=== PATIENT | male | born 1995 | race Caucasian/White ===

== ENCOUNTER 2025-08-10 07:19 | Emergency (ER) | payer BC, SELFPAY ==
[2025-08-10 07:33] VITALS: BP 163/92; PULSE 76; RESP 16; TEMP 36.4; O2SAT 97; BMI 30.8
[2025-08-10 08:02] LABS: Hematocrit* 45.2 % (37.0-53.0); Hemoglobin* 15.4 gm/dL (13.5-17.5); Immature Granulocytes Abs Auto 0.01 K/uL (0.00-0.30); Immature Granulocytes Pct Auto 0.1 %; Mean Corpuscular HGB Conc 34 gm/dL (32-36); Mean Corpuscular Hemoglobin 29 pg (26-34); Mean Corpuscular Volume 85 fL (80-100); RDW Coefficient of Variation % 12.3 % (11.5-15.5); Red Blood Count* 5.31 m/uL (4.30-5.90); White Blood Count* 7.92 K/uL (4.50-11.00)
[2025-08-10 08:04] LABS: Lymphocytes Absolute Auto 1.30 K/uL (0.90-2.90); Slide Review Reflex No
[2025-08-10 08:16] LABS: Albumin* 5.1 g/dL (3.3-5.0); Chloride* 92 mmol/L (96-114); Sodium* 136 mmol/L (135-149)
[2025-08-10 08:17] LABS: Potassium* 3.8 mmol/L (3.6-5.1)
[2025-08-10 08:19] LABS: Alanine Aminotransferase* 40 U/L (4-50); Anion Gap 16 mEq/L (7-15); Aspartate Amino Transferase* 33 U/L (12-35); Blood Urea Nitrogen* 18 mg/dL (5-24); Carbon Dioxide* 28 mmol/L (20-32); Creatinine* 1.1 mg/dL (0.5-1.5); Est. Creatinine Clearance* 102.31; Estimated Glomerular Filt Rate 93 ml/min
[2025-08-10 08:20] LABS: Alkaline Phosphatase* 89 U/L (40-150); Bilirubin Total* 1.5 mg/dL (0.1-1.5); Calcium* 9.8 mg/dL (8.4-10.6); Glucose* 118 mg/dL (60-115); Total Protein* 9.1 g/dL (6.0-8.3)
[2025-08-10 08:20] LABS: PCR FLU A Negative PCR FLU A (Negative); PCR FLU B Negative PCR FLU B (Negative); PCR RSV Negative PCR RSV (Negative); SARS PCR* Negative SARS-CoV-2 (Negative)
--- NOTE | 2025-08-10 08:33 | ED.GENADULT ---
HPI - General Adult General Date Seen: 08/10/25 Chief complaint: Nausea/Vomiting Stated complaint: nausea Time Seen by Provider: 08/10/25 08:03 Source: patient Mode of arrival: ambulatory Limitations: no limitations History of Present Illness HPI narrative: Patient is a 30-year-old male presenting to the emergency department for fatigue, intermittent chills, intermittent headache, left shoulder pain. He states for the past 3 or 4 days he has been having nausea, headaches, fatigue. States he is not currently nauseated. States he actually feels hungry at this time. Has not had any vomiting. No previous abdominal surgeries. Denies any abdominal pain. States the headache is in the back of his head near the occipital region. He started developing left-sided neck and left shoulder pain last night. Due to that his significant other convinced him to come to the emergency department for possible heart attack. He has no family history of heart disease. He has no medical conditions and does not take any medications. Denies any chest pain other than when he takes a deep breath. Denies shortness of breath but just states he gets fatigued. Is not aware of any sick contacts. Does not have a cough or rhinorrhea. The states he feels mildly dehydrated. Denies history of blood clots, lower extremity swelling, hemoptysis, any history of cancer, recent surgeries, hormone use. No other concerns noted at this time. Related Data Home Medications ?Medication ?Instructions ?Recorded ?Confirmed No Known Home Medications 08/10/25 08/10/25 Allergies Allergy/AdvReac Type Severity Reaction Status Date / Time No Known Drug Allergies Allergy Verified 08/10/25 07:36 Review of Systems Status of ROS: Reports: 10 or more systems reviewed and unremarkable except as noted in History and below [facility] Social History Smoking Status: Current some day smoker How often do you have a drink containing alcohol: never How often do you have six or more drinks on one occasion: Never AUDIT-C Alcohol total score: 0 Non-prescribed substance use: marijuana (any form) Exam Narrative: Exam Narrative: Const: Well-nourished, Well-developed, in mild distress Eyes: PERRL, no conjunctival injection, and symmetrical lids HENT: Atraumatic external nose and ears. Moist mucous membranes. Neck: Symmetric, trachea midline, No thyromegaly. CVS: RRR, No murmurs or gallops. Peripheral pulses 2+ and equal in all extremities RESP: Unlabored respiratory effort. Clear to auscultation bilaterally. GI: Nontender/Nondistended, No rebound or guarding. MSK:Extremities w/o deformity, Normal Active ROM Skin: Warm, Dry. No rashes or lesions. Neuro: Normal Muscle tone, No focal neurological deficits. Psych: Awake, Alert, & Oriented x3. Appropriate mood and affect. Const: Vital Signs, click to edit/add: Vital Signs - 24 hr 08/10/25 07:33 08/10/25 08:44 Temperature 97.5 F L Pulse Rate [Pulse Oximeter] 76 68 Respiratory Rate 16 16 Blood Pressure [Ri t Upper Arm] 163/92 H 149/76 H Pulse Oximetry 97 98 Oxygen Delivery Me thod Room Air Room Air Course Vital Signs Vital signs: Initial Vital Signs Temperature 97.5 F L 08/10/25 07:33 Temperature Source Oral 08/10/25 07:33 Pulse Rate 76 08/10/25 07:33 Respiratory Rate 16 08/10/25 07:33 Blood Pressure 163/92 H 08/10/25 07:33 Blood Pressure Mean 115 H 08/10/25 07:33 Blood Pressure Position Sitting 08/10/25 07:33 Pulse Oximetry 97 08/10/25 07:33 Oxygen Delivery Method Room Air 08/10/25 07:33 Vital Signs Temperature 97.5 F L 08/10/25 07:33 Pulse Rate 76 08/10/25 07:33 Respiratory Rate 16 08/10/25 07:33 Blood Pressure 163/92 H 08/10/25 07:33 Pulse Oximetry 97 08/10/25 07:33 Oxygen Delivery Method Room Air 08/10/25 07:33 Temperature 97.5 F L 08/10/25 07:33 Pulse Rate 68 08/10/25 08:44 Respiratory Rate 16 08/10/25 08:44 Blood Pressure 149/76 H 08/10/25 08:44 Pulse Oximetry 98 08/10/25 08:44 Oxygen Delivery Method Room Air 08/10/25 08:44 Medications Administered Medications: Discontinued Medications Generic Name Dose Route Start Last Admin Trade Name Freq PRN Reason Stop Dose Admin Sodium Chloride 1,000 mls @ 1,000 mls/hr 08/10/25 08:15 08/10/25 08:48 0.9 % Sodium Chloride 1000 Ml IV 08/10/25 09:14 Infused .Q1H TIANNA Infusion Medical Decision Making MDM Narrative Medical decision making narrative: Patient is a 30-year-old male presenting for left shoulder and neck pain. He is concerned about heart issues. He does have some mild chest pain with deep breaths. The differential diagnosis of chest pain is broad and includes common etiologies such as musculoskeletal strain, GERD, pneumonia, etc. More serious etiologies considered include PE, coronary artery disease, pneumothorax, aortic dissection, aortic aneurysm. Will do EKG troponin to look for signs of cardiac abnormalities. He is PERC negative. His vital signs are stable I have low concern for aortic dissection or aortic aneurysm. Will order chest x-ray look for signs pneumonia pneumothorax. With the nausea I will also order my pacemaker is not pancreatitis. Fluids given for his nausea. CBC, CMP, viral swabs also ordered. Lab work returned showing no acute concerning abnormalities. Troponin within normal limits. Considering like the symptoms are not believe repeat troponin is necessary. EKG interpreted by myself shows no acute concerning abnormalities. Chest x-ray interpreted by myself and radiologist shows concerning signs for left lower lobe pneumonia. I will treat him for pneumonia. Will discharge him home on azithromycin via instymeds. Lab Data Labs: Lab Results 08/10/25 08/10/25 Range/Units 07:38 08:00 WBC 7.92 (4.50-11.00) K/uL RBC 5.31 (4.30-5.90) m/uL Hgb 15.4 (13.5-17.5) gm/dL Hct 45.2 (37.0-53.0) % MCV 85 (80-100) fL MCH 29 (26-34) pg MCHC 34 (32-36) gm/dL RDW Coeff of Adin 12.3 (11.5-15.5) % Plt Count 219 (140-440) K/uL Neut % (Auto) 66.5 (42.0-72.0) % Lymph % (Auto) 16.8 L (20-44) % [place] % (Auto) 15.4 H (0.0-11.0) % Eos % (Auto) 0.8 (0.0-7.0) % Baso % (Auto) 0.4 (0.0-3.0) % Neut # (Auto) 5.27 (1.7-7.0) K/uL Lymph # (Auto) 1.30 (0.90-2.90) K/uL [place] # (Auto) 1.20 H (0.00-0.90) K/UL Eos # (Auto) 0.06 (0.00-0.50) K/uL Baso # (Auto) 0.03 (0.00-0.30) K/uL Abs Immat Gran (auto) 0.01 (0.00-0.30) K/uL Imm/Tot Granulo (auto) 0.1 % Sodium 136 (135-149) mmol/L Potassium 3.8 (3.6-5.1) mmol/L Chloride 92 L (96-114) mmol/L Carbon Dioxide 28 (20-32) mmol/L Anion Gap 16 H (7-15) mEq/L BUN 18 (5-24) mg/dL Creatinine 1.1 (0.5-1.5) mg/dL Estimated Creat Clear 102.31 Estimated GFR 93 ml/min Glucose 118 H (60-115) mg/dL Calcium 9.8 (8.4-10.6) mg/dL Total Bilirubin 1.5 (0.1-1.5) mg/dL AST 33 (12-35) U/L ALT 40 (4-50) U/L Alkaline Phosphatase 89 (40-150) U/L Troponin I 0.02 (0.01-0.04) ng/mL Total Protein 9.1 H (6.0-8.3) g/dL Albumin 5.1 H (3.3-5.0) g/dL Lipase 105 (23-300) U/L SARS-CoV-2 (PCR) Negative SARS-CoV-2 (Negative) Influenza Type A (PCR) Negative PCR FLU A (Negative) Influenza Type B (PCR) Negative PCR FLU B (Negative) RSV (PCR) Negative PCR RSV (Negative) Imaging Data Chest x-ray: Attestation: I have reviewed the pertinent imaging results. Radiologist's impression: Small left lower lobe consolidation is probably pneumonia with the given clinical symptoms. Dictated by Nadiya El MD @ 08/10/2025 9:33:18 AM ECG Data Attestation: I personally reviewed and interpreted this ECG as follows: Prior ECG tracings: not available for review Interpretation: Normal sinus rhythm with rate of 60 beats per minute, normal intervals, normal axis, no ST or T-wave abnormalities. Discharge Plan Discharge Clinical Impression: Left lower lobe pneumonia Qualifiers: Pneumonia type: due to unspecified organism Qualified Code(s): J18.9 - Pneumonia, unspecified organism Patient Disposition: Home, Self-Care Condition: Stable Instructions: Community Acquired Pneumonia (DC) Additional Instructions: You have a small area of pneumonia in your lung. This is likely causing her symptoms. Take antibiotics as prescribed. You picker tender helper the with azithromycin via instymeds. Follow up with the primary care provider. Return for new or worsening symptoms. Prescriptions: No Action No Known Home Medications Follow Up/Referrals: Provider,Not a Local [Primary Care Provider, Family Practice] Stand Alone Forms: Propable Info Instructions
[2025-08-10 08:44] VITALS: BP 149/76; PULSE 68; RESP 16; O2SAT 98
--- OUTSIDE RECORDS SUMMARY | 2025-08-10 08:48 | XMS_ITS | Clinical Summary ---
Author Organization [facility] Address [address] [place] [id number] Care Team Providers Care Exploitation Analyst Name Role Phone Pcp, No Primary Care Provider Unavailabl e Allergies No known active allergies Medications No known medications Active Problems Problem Noted Date Diagnosed Date ADHD (attention deficit hyperactivity disorder) 12/16/2009 Encounters Date Type Department Care Team Description 08/10/2025 8:50 AM [facility] Emergency [facility] [address] [place] [id number] from Last 3 Months Immunizations Immunization Administration Dates Next Due DTP 01/29/1997,1996 DTaP 05/03/2001,12/09/2000,10/17/1997 HIB PRP-OMP (PedvaxHIB) 10/17/1997,01/29/1997,,1996 Hepatitis B (Peds) 04/23/2008,01/29/1997, 997 Inactivated Polio Vaccine 05/03/2001,12/09/2000 MMR 12/09/2000,10/17/1997 Meningococcal Vaccine (Menactra) 04/23/2008 Oral Polio Vaccine 10/17/1997,1996 Tdap 04/23/2008 Varicella Vaccine 12/09/2000 Family History Medical History Relation Name Comments Good Health Brother Good Health Father Good Health Mother Relation Name Status Comments Brother Father Mother Social History Tobacco Use Types Packs/Day Years Used Date Smoking Tobacco: Passive Smo ke Exposure - Never Smoker Smokeless Tobacco: Current Chew Tobacco Cessation:Ready to Q uit: No; Counseling Given: Yes Comments:little more than half a can per day Alcohol Use Standard Drinks/Week Comments Not Currently 0 (1 standard drink = 0.6 oz pur e alcohol) PHQ-2 Answer Date Recorded PHQ-2 Score 0 10/15/2019 Social Connections Answer Date Recorded Do you often feel lonely or isolated from those around you? 0 10/12/2024 Financial Resource Strain Answer Date R ecorded Difficulty of Paying Living Expenses 3 10/12/2024 Difficulty of Paying Living Expenses Not on file 10/12/2024 Food Insecurity Answer Date Recorded Do you worry your food will run out before you are able to buy more? 1 10/12/2024 Transportation Needs Answer Date Record ed Does lack of transportation keep you from medica l appointments? 1 10/12/2024 Does lack of transportation keep you from work, meetings or getting things that you need? 1 10/12/2024 Housing Stability Answer Date Recorded What is your housing situation today? 1 10/12/2024 Utilities Answer Date Recorded Do you have trouble paying f or utilities (for example, heat, electricity, water, phone)? 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 Gender Identity Not on file Sexual Orientation Not on file Last Filed Vital Signs Vital Sign Reading Time Taken Comments Blood Pressure 138/91 10/12/2024 9:03 AM METALLOGRAPHIC TECHNICIAN Pulse 67 10/12/2024 9:03 AM METALLOGRAPHIC TECHNICIAN Temperature 36.7 C (98 F) 10/12/2024 9:03 AM METALLOGRAPHIC TECHNICIAN Respiratory Rate 12 10/07/2023 4:27 PM METALLOGRAPHIC TECHNICIAN Oxygen Saturation 96% 10/12/2024 9:03 AM METALLOGRAPHIC TECHNICIAN Inhaled Oxygen Concentration - - Weight 90.7 kg (200 lb) 10/07/2023 4:27 PM METALLOGRAPHIC TECHNICIAN Height 177.8 cm (5' 10) 10/07/2023 4:27 PM METALLOGRAPHIC TECHNICIAN Body Mass Index 28.7 10/07/2023 4:27 PM METALLOGRAPHIC TECHNICIAN Plan of Treatment Health Maintenance Due Date Last Done Comments HIV for age 15-65 2011 Hepatitis C screening for ag e 18-79 2014 Tetanus booster 04/23/2018 04/23/2008 Depression screening for age 12+ 10/15/2020 10/15/2019 BMI (ht and wt on same day) for age 18+ 11/07/2020 11/08/2019, 10/15/2019 HPV series for age 9-45 (1 - 3-dose SCDM series) 2023 COVID-19 vaccine series (2024- season) 2025 Influenza Vaccine (#1) 2025 RSV vaccine for adults or (1 - 1-dose 75+ series) 2071 Hepatitis B series for 19+ Completed 04/23, 01/29/1997, 1996 Pneumococcal series for age 6-49 Aged Out No longer eligible b ased on patient's age to complete this topic Insurance Care Teams Exploitation Analyst Relationship Specialty Start Date End Date Pcp, No . PCP - General 10/15/19
--- NOTE | 2025-08-10 09:08 | CRLHL7_ITS ---
For Patients: As a result of the Cures Act, medical imaging exams and procedure reports are released immediately into your electronic medical record. You may view this report before your referring provider. If you have questions, please contact your health care provider. INDICATION: Fever and body aches, chest pain COMPARISON: None. TECHNIQUE: PA and lateral 2 view chest. FINDINGS: Lung volumes are moderate. Left basilar consolidation. No pulmonary edema. No pleural effusion. No pneumothorax. No pneumomediastinum. Normal cardiomediastinal silhouette. Bones: Right clavicle fracture fixation plate and screw hardware. No acute osseous findings. IMPRESSION: Small left lower lobe consolidation is probably pneumonia with the given clinical symptoms. Dictated by Nadiya El MD @ 08/10/2025 9:33:18 AM (Electronically Signed)
== END 2025-08-10 09:51 | disposition home or self-care (01) ==
PROVIDERS: Emergency Provider Student in an Organized Health Care Education/Training Program
DX: J18.9 Pneumonia, unspecified organism (principal)
CPT/HCPCS: 36415; 71046; 80053; 83690; 84484; 85025; 87631; 93005; 96360; 99284; 99285; J7030